=== PATIENT | female | born 1950 | race African-American/Black ===

== ENCOUNTER 2018-01-12 10:45 | Inpatient (IN) | payer MEDICARE, OTHER ==
[~2018-01-12] VITALS: Ht 160 cm; Wt 162.0 kg
[2018-01-12] VITALS (7 sets, daily range): BP systolic 113–164; BP diastolic 62–103
--- NOTE | ~2018-01-12 | PR ---
[place], [place] PROGRESS NOTE NAME: NETO CARDENAS UNIT #: [id number] ROOM: 408 DOCTOR: YANNICK MABRY MD BIRTHDATE: [birth year] DOS: 01/15/2018 SUBJECTIVE: The patient noted comfortable at this time without any acute distress, resting comfortably on the bed. She has not reported any symptoms of chest pain. Using the BiPAP for the patient has ordered with oxygen supplementation as well. OBJECTIVE: VITAL SIGNS: For the patient shows normal temperature, respiratory rate 18, heart rate of 71, blood pressure 159/84. The pulse oxygen saturation of the patient recorded as 99% saturation on 2 liters nasal cannula. HEENT: Chronic obesity. Head was atraumatic. Eyes nonicterus. NECK: Supple. CARDIOVASCULAR: S1, S2 audible. LUNGS: Without any wheeze or crackles. ABDOMEN: Soft and morbidly obese. EXTREMITIES: Chronic changes. LABORATORY DATA: BMP of the patient this morning, BUN 39, creatinine 1.49. The patient with gram-positive cocci, which has been noted initially on admission. Final cultures are Staph epidermidis for the patient and the followup cultures surveillance, which was done for the patient of the 2nd showed no bacterial growth. Possibly contamination could be considered very strongly for the patient because of followup culture does not show any organisms. IMPRESSION: 1. The patient has been currently noted with progressive and gradual resolution of acute exacerbation of chronic obstructive pulmonary disease with acute on chronic hypercapnic hypoxic respiratory failure. 2. Suspicion of obstructive sleep apnea disorder. 3. Possible contamination for the patient Staphylococcus epidermidis. PLAN OF MANAGEMENT: Recommended to discontinue antibiotic. Close monitoring for any signs of infection or sepsis ____ the antibiotic could be ____. Otherwise, no need for antibiotics. If necessary, obtain the consultation from the Infectious Disease Specialist. [place], [place] PROGRESS NOTE NAME: NETO CARDEANS UNIT #: [id number] ROOM: 408 DOCTOR: YANNICK MABRY MD BIRTHDATE: [birth year] YANNICK GARRETT MD CM:PNTRANS [id number] [id number] YANNICK TORO MD 01/16/18 0011 interface
--- NOTE | ~2018-01-12 | PR ---
[place], [place] PROGRESS NOTE NAME: NETO CARDENAS UNIT #: [id number] ROOM: 408 DOCTOR: TAMI TORO MD,YANNICK BIRTHDATE: [birth year] DOS: 01/16/2018 SUBJECTIVE: She has been noted comfortable at this time, resting on the bed. She has not reported any symptoms of chest pain or any hemoptysis. She denies symptoms of acute shortness of breath at rest. OBJECTIVE: VITAL SIGNS: Normal temperature, respiratory rate 18, heart rate 80-67, blood pressure 151/88. The pulse ox saturation on 2 liters nasal cannula 100% saturation with BiPAP for this patient, 30% oxygen 98% saturation. HEENT: Chronic obesity. Head was atraumatic. Eyes nonicterus. NECK: Supple. CARDIOVASCULAR: S1, S2 audible. LUNGS: The patient noted without any wheeze or crackles. ABDOMEN: Soft, severe morbid obesity. Bowel sounds present. EXTREMITIES: Without any acute edema. LABORATORY DATA: BMP: BUN 38, creatinine 1.38. CO2 33. CBC: WBC count was 13.4. IMPRESSION: 1. The patient with progressive resolution improvement with acute exacerbation of chronic obstructive pulmonary disease noted. 2. Chronic severe morbid obesity. 3. Resolving acute on chronic hypercapnic and hypoxic respiratory failure. 4. Suspicion of obstructive sleep apnea disorder. PLAN OF MANAGEMENT: No changes from the pulmonary standpoint. Discharge planning could be started for the patient's home discharge with a tapering dose of prednisone. Continue bronchodilator in meantime, other supportive plan of therapy and also use of the antibiotic for the patient as ordered. YANNICK GARRETT MD CM:PNTRANS [id number] 1343 YANNICK TORO MD 01/16/18 1341 interface
--- NOTE | ~2018-01-12 | PR ---
[place], [place] PROGRESS NOTE NAME: NETO CARDENAS UNIT #: [id number] ROOM: 408 DOCTOR: TAMI TORO MD,YANNICK BIRTHDATE: [birth year] DOS: 01/18/2018 SUBJECTIVE: The patient was seen and examined on 01/18/2018, was noted comfortable at this time without any acute distress, resting on the bed. She has been continued receiving diuretics for the edema and congestive heart failure management. Respiratory downey doing well, using the BiPAP. There were no symptoms of acute shortness of breath, coughing, or sputum expectoration, wheezing. OBJECTIVE: VITAL SIGNS: Normal temperature, respiratory rate 18, heart rate 69 and blood pressure 140/52. The pulse oxygen saturation on 2 liters nasal cannula 100 % saturation. HEENT: Head was atraumatic. Eyes nonicterus. NECK: Supple. CARDIOVASCULAR: S1, S2 audible. LUNGS: Clear. The patient anterolateral auscultation. ABDOMEN: Noted severe morbid obesity, nontender, bowel sounds present. EXTREMITIES: The patient with chronic obesity with superimposed edema. LABORATORY DATA: CBC: WBC count 16.4. Hemoglobin normal. Hematocrit normal. CMP of the patient, BUN 44, creatinine 1.49 and CO2 36. IMPRESSION: The patient has been noted with current resolving acute exacerbation of chronic obstructive pulmonary disease, acute hypercapnic and hypoxic respiratory failure. Severe morbid obesity, suspected obstructive sleep apnea disorder. PLAN OF MANAGEMENT: Discontinue Solu-Medrol at the present time. Continue diuretics and other medical management as previously in progress. Usual care. Additional treatment changes to be made based on progression of the illness. YANNICK GARRETT MD CM:PNTRANS [phone] YANNICK TORO MD 01/18/18 1125 interface
--- NOTE | ~2018-01-12 | EKG ---
[place], [place] ELECTROCARDIOGRAM REPORT NAME: NETO CARDENAS UNIT #: [id number] ROOM: [facility] DOCTOR: TAMI TORO MD,YANNICK BIRTHDATE: [birth year] DOS: 01/12/2018 Electrocardiogram was done on 01/12/2018 at 11:36 a.m. Normal sinus rhythm noted, heart rate of 87 beats per minute. EKG was noted normal. YANNICK GARRETT MD CM:EKGRPT:ELECTROCARDIOGRAM REPORT [id number] YANNICK TORO MD
--- NOTE | ~2018-01-12 | PR ---
[place], [place] PROGRESS NOTE NAME: NETO CARDENAS UNIT #: [id number] ROOM: 408 DOCTOR: TAMI TORO MD,YANNICK BIRTHDATE: [birth year] DOS: 01/14/2018 PULMONARY PROGRESS NOTE SUBJECTIVE: She was noted quite comfortable at this time, resting on the bed without any acute distress. She has not been reported with any symptoms of chest pain or any hemoptysis. Receiving Solu-Medrol 40 mg q. 8 hours. Uses the BiPAP as advised. This morning, using oxygen supplementation via nasal cannula. OBJECTIVE: VITAL SIGNS: Normal temperature, respiratory rate 16, heart rate 83, blood pressure 149/80. Pulse oxygen saturation recorded as 99% saturation on 2 liters nasal cannula. HEENT: Chronic obesity. Head was atraumatic. CARDIOVASCULAR: S1, S2 is audible. LUNGS: The patient was noted without any wheezing or crackles. ABDOMEN: Soft with severe morbid obesity. Bowel sounds present. EXTREMITIES: Without any acute edema. IMPRESSION: 1. Resolving acute exacerbation of chronic obstructive pulmonary disease with improving acute hypercapnic hypoxic respiratory failure progressively as well. 2. Severe morbid obesity with strong suspicion of obstructive sleep apnea disorder. PLAN OF THERAPY: The patient's dose of steroid will be decreased to 40 mg daily from 40 mg 8 hours. Monitor for respiratory status. May be transferred from the Intensive Care Unit to medical floor. Possible consideration for home discharge in the morning. The assessment and management was discussed with the patient and family members today at the bedside as well. YANNICK GARRETT MD CM:PNTRANS [phone] 18 YANNICK TORO MD 01/14/182017 interface
--- NOTE | ~2018-01-12 | PR ---
[place], [place] PROGRESS NOTE NAME: NETO CARDENAS UNIT #: [id number] ROOM: 408 DOCTOR: TAMI TORO MD,YANNICK BIRTHDATE: [birth year] DOS: 01/23/2018 SUBJECTIVE: She was noted comfortable at this time, resting on the ____ noted without any acute distress. She has been using oxygen supplementation nasal cannula. Denies symptoms of chest pain, abdominal pain, used the BiPAP last night as well. OBJECTIVE: VITAL SIGNS: For the patient, which have been recorded show normal temperature, respiratory rate 18, heart rate 75, blood pressure 90/56. Pulse oxygen saturation on 2.5 liters nasal cannula 97% saturation. HEENT: Chronic obesity. Head was atraumatic. Eyes nonicterus. NECK: Supple. CARDIOVASCULAR: S1, S2 audible. LUNGS: The patient was noted without any wheezing or crackles at present time. ABDOMEN: Soft, nontender. It was noted, morbidly obese. EXTREMITIES: The patient's examination remains unchanged from previously. LABORATORY DATA: CBC: WBC count 16.6. CMP: BUN 50, creatinine 1.83. IMPRESSION: 1. The patient with acute hypercapnic and hypoxic respiratory failure with exacerbation of chronic obstructive pulmonary disease, which is improving. 2. History of morbid obesity as well. 3. Elevation of BUN and creatinine. PLAN OF TREATMENT: No changes from the pulmonary standpoint for the current medical management. Continue other therapy, plan of management as in progress. Usual care, other supportive therapy, plan of care and treatments. YANNICK GARRETT MD CM:PNTRANS [id number] YANNICK TORO MD 01/23/18 1420 interface
--- NOTE | ~2018-01-12 | PR ---
[place], [place] PROGRESS NOTE NAME: NETO CARDENAS UNIT #: [id number] ROOM: 408 DOCTOR: TAMI TORO MD,YANNICK BIRTHDATE: [birth year] DOS: 01/17/2018 SUBJECTIVE: She has been noted comfortable, resting in the bed, used the BiPAP last night. Denies any acute shortness of breath, coughing, wheezing or any sputum expectoration. The patient was using oxygen supplementation this morning of assessment. OBJECTIVE: VITAL SIGNS: Normal temperature, respiratory rate 20, heart rate 70, blood pressure 155/82. Pulse oxygen saturation of the patient recorded as 99% saturation on 2 liters nasal cannula. HEENT: Examination shows head was atraumatic. Eyes nonicterus. NECK: Supple. CARDIOVASCULAR: S1, S2 is audible. LUNGS: Noted without any wheezing or crackles at the present time. ABDOMEN: Noted with severe morbid obesity. EXTREMITIES: Showed chronic changes. IMPRESSION: Stable respiratory status, resolving acute on chronic hypercapnic hypoxic respiratory failure, exacerbation of chronic obstructive pulmonary disease, history of morbid obesity, suspected obstructive sleep apnea disorder. PLAN OF MANAGEMENT: No changes in the plan of management from pulmonary standpoint. Discharge planning was started at this time. Continue other supportive plan of management and care. YANNICK GARRETT MD CM:PNTRANS [phone] YANNICK TORO MD 01/17/18 1333 interface
--- NOTE | ~2018-01-12 | PR ---
[place], [place] PROGRESS NOTE NAME: NETO CARDENAS UNIT #: [id number] ROOM: 408 DOCTOR: TAMI TORO MD,YANNICK BIRTHDATE: [birth year] DOS: 01/26/2018 PULMONARY PROGRESS NOTE SUBJECTIVE: The patient has been noted comfortable, resting on the bed, using the BiPAP this morning. She was planned for discharge home today, as the patient would like to go to nursing facility but they cannot meet her needs for the medical care. OBJECTIVE: VITAL SIGNS: Normal temperature, respiratory rate 20, heart rate 73, blood pressure 89/56-91/43. Pulse oxygen saturation recorded on room air as 99% saturation. HEENT: Head was atraumatic. Eyes nonicterus. NECK: Supple and obese. CARDIOVASCULAR: S1, S2 audible. LUNGS: Clear to anterolateral auscultation. ABDOMEN: Soft, nontender, and obese. EXTREMITIES: Without any acute new change. IMPRESSION: 1. Stable respiratory status, resolved [id number] hypercapnic and hypoxic respiratory failure. 2. Nocturnal hypoxia with strong suspicion of obstructive sleep apnea disorder. 3. Chronic morbid obesity, decreased mobility. PLAN OF MANAGEMENT: No change in the plan of management. From a pulmonary standpoint, the patient could be discharged home, to be continued on oxygen supplementation. Arrangements could be made for diagnostic sleep study for the patient at a sleep lab whenever desired by the patient. In the meantime, continue current therapy plan of management and care. YANNICK GARRETT MD CM:PNTRANS 1305 [id number] YANNICK TORO MD 01/26/18 1446 interface
--- NOTE | ~2018-01-12 | PR ---
[place], [place] PROGRESS NOTE NAME: NETO CARDENAS UNIT #: [id number] ROOM: 408 DOCTOR: AYNNICK MABRY MD BIRTHDATE: [birth year] DOS: 01/19/2018 SUBJECTIVE: The patient has been using the BiPAP at this time for the medical management of chronic hypercapnic respiratory failure. She has not been noted symptoms of chest pain, hemoptysis. Diuretic was continued. Denies any sputum expectoration or cough. OBJECTIVE: VITAL SIGNS: Normal temperature, respiratory rate 16, heart rate 68, blood pressure 144/69. The pulse oxygen saturation through nasal cannula 94% saturation. HEENT: Chronic obesity. Head was atraumatic. Eyes: No icterus. NECK: Supple. CARDIOVASCULAR: S1, S2 audible. LUNGS: The patient was noted without any wheezing or crackles. ABDOMEN: Soft, nontender with chronic changes with some edema and other changes. LABORATORY DATA: CBC today: WBC count 19.4. The BMP for the patient noted as BUN 52, creatinine 1.69. CO2 of 36. IMPRESSION: 1. The patient with chronic hypercapnic respiratory failure and acute hypoxia as well. 2. Morbid obesity. 3. The patient with possibility of obesity, hypoventilation could be considered as well. PLAN OF MANAGEMENT: The patient will benefit from the use of BiPAP. The patient home setting ____ chronic respiratory failure to prevent hospitalization to improve the quality of life. The patient was noted severe morbid obesity. Decreased mobility may not able to do the sleep study in the sleep laboratory because of mobility issues. [place], [place] PROGRESS NOTE NAME: NETO CARDENAS UNIT #: [id number] ROOM: 408 DOCTOR: YANNICK MABRY MD BIRTHDATE: [birth year] YANNICK GARRETT MD CM:PNTRANS 1221 1243 YANNICK TORO MD 01/19/18 1241 interface
--- NOTE | ~2018-01-12 | PR ---
[place], [place] PROGRESS NOTE NAME: NETO CARDENAS UNIT #: [id number] ROOM: 408 DOCTOR: TAMI TORO MD,YANNICK BIRTHDATE: [birth year] DOS: 01/22/2018 SUBJECTIVE: She has been noted comfortable at this time, resting in the bed. Denies acute shortness of breath. Used the BiPAP last night. There has not been noted symptoms of chest pain or hemoptysis. The patient has not been reported any symptoms of wheezing at the present time. OBJECTIVE: VITAL SIGNS: For the patient, which have been recorded shows the temperature noted normal, respiratory rate 18, heart rate 84, and blood pressure 120/57. The pulse ox saturation on room air 98% saturation with BiPAP was 95% saturation. HEENT: Examination shows head was atraumatic. Eyes nonicterus. NECK: Supple and obese. CARDIOVASCULAR: S1, S2 audible. LUNGS: Without any wheezing or crackles. ABDOMEN: Soft and nontender. Bowel sounds present. EXTREMITIES: Without any acute edema. LABORATORY DATA: BMP of the patient that was done this morning shows glucose 157, BUN 60, creatinine 1.99. CO2 was 35. The troponin for the patient, which were done 3 sets were noted normal. The pulse oxygen saturation of the patient, which has been recorded nocturnal pulse ox saturation on the date of 01/20/2018 until 01/21/2018: ____ sample noted was recorded 8 hours 2 minutes and 50 seconds. It shows significant nocturnal oxygen desaturation. Oxygen saturation remained less than 88% for the patient for 20 minutes and 26 seconds, which is at 4.2% saturation. Lowest pulse oxygen saturation noted 72%. The pulse oxygen saturation for the patient was recorded room air at night. IMPRESSION: 1. Nocturnal significant oxygen desaturation was noted. 2. The patient with hypercapnic and hypoxic respiratory failure as well. 3. Severe morbid obesity. PLAN OF MANAGEMENT: Qualification for the BiPAP based on the current pulse ox saturation would be needed. Continuation in the meantime other therapy, plan of management, usual care. Supportive therapy, other plan of care for patient as well. Continue the use of BiPAP at night at the present time. [place], [place] PROGRESS NOTE NAME: NETO CARDENAS UNIT #: [id number] ROOM: [facility] DOCTOR: YANNICK MABRY MD BIRTHDATE: [birth year] YANNICK GARRETT MD CM:PNTRANS [phone] YANNICK TORO MD 01/22/18 1725 interface
--- NOTE | ~2018-01-12 | PR ---
[place], [place] PROGRESS NOTE NAME: NETO CARDENAS UNIT #: [id number] ROOM: 408 DOCTOR: TAMI TORO MD,YANNICK BIRTHDATE: [birth year] DOS: 01/20/2018 PULMONARY PROGRESS NOTE SUBJECTIVE: She is noted comfortable at this time, resting in the bed. She has overnight pulse oximetry completed, pending results. She has not been noted symptoms of chest pain or hemoptysis. Denies symptoms of nausea or vomiting. OBJECTIVE: VITAL SIGNS: Which were recorded for the patient showed the temperature noted as normal. The respiratory rate of the patient recorded as 18, heart rate of 71, blood pressure 111/61. Pulse oxygen saturation of the patient noted as 97% saturation on room air. HEENT: Shows head was atraumatic, eyes nonicterus. NECK: Supple. CARDIOVASCULAR: S1, S2 audible. LUNGS: The patient was noted without any wheezing or crackles at the present time. ABDOMEN: Soft, nontender, and obese. EXTREMITIES: The patient was noted without any acute edema. Chronic changes of the lower extremities were noted with severe obesity. IMPRESSION: The patient has been noted currently stable at this time, resting on the bed, had acute hypercapnic and hypoxic respiratory failure, which is resolving, and severe morbid obesity as well. PLAN OF THERAPY: No changes in the plan for this patient from the pulmonary standpoint. Continuation of the current other plan of management as in progress. Usual care, other supportive plan of therapy and care. YANNICK GARRETT MD CM:PNTRANS 0934 1012 YANNICK TORO MD 01/20/18 1010 interface
--- NOTE | ~2018-01-12 | PR ---
[place], [place] PROGRESS NOTE NAME: NETO CARDENAS UNIT #: [id number] ROOM: 408 DOCTOR: TAMI TORO MD,YANNICK BIRTHDATE: [birth year] DOS: 01/24/2018 SUBJECTIVE: The patient noted comfortable at this time, resting in the bed without any acute distress. She has been noted without any abdominal pain. OBJECTIVE: VITAL SIGNS: For the patient which were recorded showed normal temperature, respiratory rate 18, heart rate 99, blood pressure 129/56. The pulse ox saturation on 2.5 liters nasal cannula was 100% saturation. HEENT: Examination shows chronic obesity. NECK: Supple. CARDIOVASCULAR: S1, S2 audible. LUNGS: Limited auscultation were noted clear. ABDOMEN: Soft, nontender. EXTREMITIES: Without any acute edema. IMPRESSION: 1. The patient has stable respiratory status at this time with resolving acute on chronic hypercapnic hypoxic respiratory failure. 2. Morbid obesity. 3. Suspected obstructive sleep apnea disorder. PLAN OF TREATMENT: No changes in the plan of care at this time. Continue the current plan of management and other care. Usual treatments and therapies. YANNICK GARRETT MD CM:SENAIT [phone] YANNICK TORO MD 01/24/18 1420 interface
--- NOTE | ~2018-01-12 | PR ---
[place], [place] PROGRESS NOTE NAME: NETO CARDENAS UNIT #: [id number] ROOM: 408 DOCTOR: YANNICK MABRY MD BIRTHDATE: [birth year] DOS: 01/25/2018 SUBJECTIVE: The patient noted comfortable at this time. Using the BiPAP this morning. She has been assessed with overnight pulse oximetry with two and half liter oxygen supplementation with the nasal cannula. The patient denies any symptoms of chest pain, coughing or sputum expectoration or acute shortness of breath. OBJECTIVE: VITAL SIGNS: For the patient was recorded this morning, normal temperature, respiratory rate 18, pulse 72, blood pressure 114/57. Pulse ox saturation on room air was 98% saturation recorded. HEENT: Examination shows head was atraumatic. Eyes nonicterus. NECK: Supple. CARDIOVASCULAR: S1, S2 audible. LUNGS: Without any wheezing or crackles. ABDOMEN: Soft, severely obese. EXTREMITIES: Chronic changes. LABORATORY DATA: CBC today, WBC count 15.5. CMP of the patient, BUN 45, creatinine 2.10. The pulse oxygen saturation for the patient, which are recorded overnight, the oxygen saturation less than 89% recorded for 2 minutes and 8 seconds, less than the desire level. The patient did qualify for the BiPAP. IMPRESSION: 1. Obstructive sleep apnea disorder. The patient was assessed at this time as a primary cause for this patient of hypercapnia with obesity, hypoventilation cannot be completely excluded. 2. The patient with severe advanced morbid obesity. Decreased mobility. 3. Increase of BUN and creatinine noted in the last 24 hours. PLAN OF MANAGEMENT: The patient needs to be assessed with a diagnostic study to be done in lab for this patient in the hospital. Arrangements could be made for the sleep study upon discharge for this patient in [facility] sleep respiratory. After the completion of sleep study, the patient most likely will benefit from the use of the BiPAP and CPAP for the medical management. No further changes or recommendation at this time for the management. Discharge planning could be started with continued use of oxygen home setting whenever patient noted medically stable. [place], [place] PROGRESS NOTE NAME: NETO CARDENAS UNIT #: [id number] ROOM: 408 DOCTOR: YANNICK MABRY MD BIRTHDATE: [birth year] YANNICK GARRETT MD CM:PNTRANS [phone] YANNICK TORO MD 01/25/18 1110 interface
--- NOTE | ~2018-01-12 | CON ---
[place], [place] REPORT OF CONSULTATION NAME: NETO CARDENAS UNIT #: [id number] ROOM: [facility] DOCTOR: YANNICK MABRY MD BIRTHDATE: [birth year] DOS: 01/13/2018 PULMONARY CONSULTATION, EVALUATION, AND MANAGEMENT CONSULTATION REQUESTED BY: Hospitalist services. REASON FOR CONSULTATION: For assessment and management of change in mental status with hypercapnia. HISTORY OF PRESENT ILLNESS: A 67-year-old -[place] female patient with history of severe morbid obesity, BMI of 65. Other medical illnesses has been treated by the visiting physicians and other people in the home setting. She has been noted with difficulty in arousing and change in mental status by the family members. The patient developed those symptoms several hours. Currently, the patient has good recall of the symptoms. She was not aware of the changes in mental status. She has been brought to the Emergency Room, where she has been assessed. The arterial blood gas was noted with acute hypercapnia. She was also known with use of the Percocet with chronic pain. Possibility of acute hypercapnia related to the use of the narcotic medication also considered. She has been given 2 doses of Narcan in the Emergency Room. She has noted partial improvement in wakefulness. She was started on BiPAP setting 07/19, which later on changed after consultation from yesterday. The patient has used the BiPAP several hours until this morning using oxygen supplementation 3-4 liter nasal cannula at rest. She has been reported with symptoms of mild coughing, no sputum expectoration. Denies symptoms of wheezing, chest pain, or hemoptysis. REVIEW OF SYSTEMS: CONSTITUTIONAL SYMPTOMS: Fatigue and tiredness were reported, which has been improving. There were no symptoms of fever or chills at home. EYES: Denies any burning, redness, or tenderness. EARS, NOSE, AND THROAT SYMPTOMS: Denies sore throat, hoarseness, otalgia, postnasal drainage, or epistaxis. CARDIOVASCULAR SYSTEM: No angina pain, edema, or pain of the lower extremity. GASTROINTESTINAL SYMPTOMS: Severe morbid obesity. There were no symptoms of nausea, vomiting, dysphagia, abnormal weight loss, hematemesis, or melena reported. GENITOURINARY SYMPTOMS: Denies dysuria, urinary incontinence, suprapubic pain, or hematuria. MUSCULOSKELETAL SYMPTOMS: The patient with chronic pain in the joints without any acute redness or tenderness reported. CENTRAL NERVOUS SYSTEM: Decreased mobility secondary to morbid obesity, able to walk at home with use of walker. Denies any focal neurologic deficit, tingling sensation of the extremities, or seizures. Remaining systems were reviewed and they were noted all negative. PAST MEDICAL HISTORY: Known with: 1. History of chronic kidney disease stage 3 reported. 2. Intervertebral disk disease and osteoarthritis of major joints. 3. Gastroesophageal reflux. 4. Hepatic steatosis. [place], [place] REPORT OF CONSULTATION NAME: NETO CARDENAS UNIT #: [id number] ROOM: [facility] DOCTOR: TAMI TORO MD,YANNICK BIRTHDATE: [birth year] 5. Hyperlipidemia. 6. Essential hypertension. 7. Super morbid obesity. The patient's BMI of 65. 8. History of nephrolithiasis. 9. Prediabetes. 10. Restless leg syndrome. PAST SURGICAL HISTORY: Reported as hysterectomy in the past. SOCIAL HISTORY: The patient is single. She lives at home. She does have one son. She denies any tobacco, alcohol, or any illicit drugs. FAMILY HISTORY: Both parents have been , the history was unknown clearly to the patient. HOME MEDICATIONS: Listed by the nursing staff use of the aspirin, Lipitor, baclofen, Flexeril, Cymbalta, Lasix, gabapentin, metoprolol succinate, omeprazole, Percocet 10/325 one at bedtime, Requip 2 mg b.i.d., and valsartan 320 mg daily. DRUG ALLERGIES: NOTED WITH ALLERGIES TO KEFLEX. CURRENT MEDICATIONS: Administered were noted as use of Solu-Medrol, Cymbalta, aspirin, IV Lasix 40 mg daily, Protonix, Lipitor, DuoNeb, IV vancomycin, and other p.r.n. medications. PHYSICAL EXAMINATION: GENERAL: This is a 67-year-old -[place] female, currently sitting on the bed without any acute distress. Height of 5 feet 3 inches, weight of 368 pounds, and BMI 65. VITAL SIGNS: The vital signs of the patient, which have recorded normal temperature since admission last 24 hours, respiratory rate of 8-12, the heart rate of 70-94, and blood pressure 148/80-138/103. The intake is 706 mL, output 2800 mL, ____ 2000 mL. The pulse ox saturation on 3 liters nasal cannula 98% saturation on BiPAP, previously 99% saturation. HEENT: On examination, head was atraumatic. Eyes nonicterus. NECK: Supple and obese. CARDIOVASCULAR: S1, S2 is audible. LUNGS: The patient noted without any crackles. Generally diminished breath sounds in the lungs are noted bilaterally. ABDOMEN: Noted severe morbid obesity. Bowel sounds present without tenderness. EXTREMITIES: Shows chronic changes of the lower extremity, thickening of the skin, and possible consideration of chronic mild lymphedema. CENTRAL NERVOUS SYSTEM: Cranial nerves 2-12 intact. No focal neurologic deficit. LABORATORY DATA: Urine drug screen on admission was noted greater than 300 opiates. Lactic acid yesterday noted normal in the Emergency Room 1.0. CBC of 01/12/2018, hemoglobin of 11.3, hematocrit 38.0, WBC count normal, and platelet count was normal. The CMP repeated again, BUN 28 and creatinine 2.20. CBC of [place], [place] REPORT OF CONSULTATION NAME: NETO CARDENAS UNIT #: [id number] ROOM: [facility] DOCTOR: TAMI TORO MD,[facility] BIRTHDATE: [birth year] the patient that was done this morning, WBC count 12,000, hemoglobin 11.1, hematocrit normal, and platelet count of 178,000. CMP of the patient that was done this morning showed BUN 32, creatinine 1.87, and glucose 165. PT and PTT done this morning was noted as normal. The arterial blood gas that was done yesterday in the Emergency Room, pH of 7.20, pCO2 of 68.5, pO2 110 on 3 liters nasal cannula oxygen supplementation. Arterial blood gas of the patient that was done this morning on the BiPAP settings of 18/10 shows pH of 7.37, pCO2 of 46.4, and pO2 of 106 with 40% oxygen intake at that time. Troponin noted yesterday normal. RADIOLOGY DATA: Review of 1 view chest x-ray was done in the Emergency Room does not show any acute pulmonary abnormalities. CT scan of the head was done yesterday as well. It was noted negative CT scan of the brain on 01/12/2018. IMPRESSION: 1. The patient who has been currently noted with finding consistent with acute severe hypercapnic respiratory failure as well as hypoxic respiratory failure. The patient does use oxygen supplementation only at nighttime and not during the day. The pH was noticed as 7.26, pCO2 of 58, and pO2 124 in the Emergency Room seem to be improving. 2. Acute exacerbation of obstructive lung disease such as bronchial asthma would be considered. 3. The patient with super morbid obesity without any previous diagnosis of obstructive sleep apnea disorder. The sleep apnea disorder should be excluded, appropriate further testing with current limited circumstances. 4. The patient with acute changes noted, most likely intravascular volume depletion, improving with volume replenishment. PLAN OF MANAGEMENT: Continuation of the current dose of corticosteroids 40 mg q.8 hours, which was decreased recently from 60 mg q.8 hours. Continuation of the diuretic with close monitoring of BUN and creatinine. Usual care, other supportive therapy, plan of management, and care. DVT prophylaxis. Any other change in treatment will be done based on progression of the illness. The BiPAP to be continued most of the time for the next 24 hours during the day and continue at nighttime. Dose of Solu-Medrol will be gradually decreased. Other supportive management of therapy to be continued as well. Thanks for allowing me to participate in care of this patient. [place], [place] REPORT OF CONSULTATION NAME: NETO CARDENAS UNIT #: [id number] ROOM: [facility] DOCTOR: YANNICK MABRY MD BIRTHDATE: [birth year] YANNICK GARRETT MD CM:CONSTR:REPORT OF CONSULTATION [id number] 01/14/18 0005 interface
[~2018-01-12 10:45] MED LIST: ALDACTONE25 MG PO; AMMONIUM LACTATE; ASPIRIN81 M1 PO; CINNAMON500 MG PO; CO Q-1030 MG PO; CYCLOBENZAPRINE10 MG PO; DIOVAN320 MG PO; FERROUS SULFAT325 M1 PO; IBU-8800 MG PO; KLOR-CON M1010 MEQ PO; LORATADINE10 M1 PO; METOPROLOL SR50 MG PO; NEURONTIN600 MG PO; OMEPRAZOLE40 MG PO; OXYCODONE AND A1 TA3 PO; ROPINIROLE2 MG PO; SIMVASTATIN20 MG PO; TOPAMAX100 MG PO; VICODIN HP 6601 TAB PO; VITAMIN B1225 MCG PO; VITAMIN D1000 IU PO; ZESTRIL,PRINIVI20 MG PO; ZYRTEC10 MG PO; [UNRECOGNIZED DRUG - OTHER]
[2018-01-12 11:18] LABS: BILIRUBIN NEGATIVE (NEGATIVE); BLOOD NEGATIVE (NEGATIVE); CLARITY CLEAR (CLEAR); COLOR YELLOW (YELLOW); GLUCOSE NEGATIVE (NEGATIVE); KETONE NEGATIVE (NEGATIVE); LEUKO ESTERASE TRACE (NEGATIVE); NITRITE NEGATIVE (NEGATIVE); SPECIFIC GRAVITY >= 1.030 (1.005-1.030); UROBILINOGEN 0.2 E.U./dl (0.2-1.0)
[2018-01-12 11:27] LABS: URINE AMPHETAMINES < 1000 (1000ng/ml); URINE BARBITURATES < 200 (200ng/ml); URINE BENZODIAZEPINES < 200 (200ng/ml); URINE CANNABINOIDS (THC) < 50 (50ng/ml); URINE COCAINE < 300 (300ng/ml); URINE METHADONE < 300 (300ng/ml); URINE OPIATES > 300 (300ng/ml)
[2018-01-12 11:29] LABS: BASO # 0.1 10*3/uL (0.0-0.1); BASO % 0.5 % (0.0-1.0); EOS # 0.3 10*3/uL (0.0-0.4); EOS % 2.7 % (1.0-4.0); HEMOGLOBIN 11.3 g/dl (12.0-16.0); LYMPH # 1.6 10*3/uL (1.3-4.4); LYMPH % 15.2 % (27.0-41.0); MEAN CELL VOLUME 99.2 fl (81.0-99.0); MEAN CORPUSCULAR HGB 29.5 pg (27.0-31.0); MEAN CORPUSCULAR HGB CONC 29.7 g/dl (33.0-37.0); MEAN PLATELET VOLUME 9.8 fl (9.6-12.3); MONO # 1.1 10*3/uL (0.1-1.0); MONO % 10.6 % (3.0-9.0); NEUT # 7.6 10*3/uL (2.3-7.9); NEUT % 70.7 % (47.0-73.0); PLATELET COUNT AUTOMATED 175 10*3/uL (130-400); RED BLOOD COUNT 3.83 10*6/uL (4.10-5.10); RED CELL DISTRI WIDTH 15.4 % (0-14.5); WHITE BLOOD COUNT 10.8 10*3/uL (4.8-10.8)
[2018-01-12 11:33] LABS: URINE PHENCYCLIDINE < 25 (25ng/ml)
[2018-01-12 11:37] LABS: ABG BASE EXCESS -2.6 mmol/L (-2.0-2.0); ABG HCO3 26.3 mmol/l (22-26); ABG O2 SATURATION 97.4 % (95-97); ARTERIAL BLOOD GAS PCO2 68.6 mmHg (35-45); ARTERIAL BLOOD GAS PH 7.208 (7.35-7.45)
[2018-01-12 11:46] LABS: ALBUMIN 3.3 gm/dl (3.1-4.5); ALKALINE PHOSPHATASE 107 U/L (45-117); BUN 28 mg/dl (7-24); CHLORIDE 109 mmol/L (98-107); POTASSIUM 5.1 mmol/L (3.5-5.1); SGOT/AST 18 IU/L (3-35); SGPT/ALT 23 U/L (12-78); SODIUM 145 mmol/L (136-145)
[2018-01-12 11:52] LABS: BACTERIA 2+; CALCIUM OXALATE CRYSTALS TRACE
[2018-01-12] MEDS ORDERED: KLOR-CON SPRIN10 MEQ PO (11:54)
[2018-01-12] MEDS ORDERED: BACLOFEN20 M1 PO (11:56)
[2018-01-12] MEDS ORDERED: PERCOCET 10-321 EACH PO (12:00)
[2018-01-12] MEDS ORDERED: CYCLOBENZAPRINE10 MG PO (12:01)
[2018-01-12 12:08] LABS: TROPONIN I < 0.015 ng/ml (<0.045)
[2018-01-12] MEDS ORDERED: ATORVASTATIN CA20 M1 PO (15:17)
[2018-01-12] MEDS ORDERED: VALSARTAN320 MG PO (15:17)
[2018-01-12] MEDS ORDERED: METOPROLOL TART50 M1 PO (15:18)
[2018-01-12] MEDS ORDERED: DULOXETINE HCL30 MG PO (15:19)
[2018-01-12] MEDS ORDERED: ROPINIROLE HYDRO2 M2 PO (15:20)
[2018-01-12] MEDS ORDERED: FUROSEMIDE40 MG PO (15:21)
[2018-01-12] MEDS ORDERED: ASPIR 8181 MG PO (15:25)
[2018-01-12 17:14] LABS: ABG BASE EXCESS -1.9 mmol/L (-2.0-2.0); ABG HCO3 25.9 mmol/l (22-26); ABG O2 SATURATION 98.2 % (95-97); ARTERIAL BLOOD GAS PCO2 58.9 mmHg (35-45); ARTERIAL BLOOD GAS PH 7.26 (7.35-7.45)
[2018-01-12] MEDS ORDERED: VITAMIN D31000 UNI1 PO (17:14)
[2018-01-12] MEDS ORDERED: FISH OIL 1,0001 EAC5 PO (17:15)
[2018-01-12] MEDS ORDERED: FERROUS SULFAT325 MG PO (17:15)
[2018-01-12] MEDS ORDERED: MAG DELAY PO (17:17)
[2018-01-12] MEDS ORDERED: KLOR-CON M1010 ME1 PO (17:19)
[2018-01-13] VITALS: BP 150/85
[2018-01-13 03:43] VITALS: BP 149/82
[2018-01-13 06:27] LABS: BASO % 0.1 % (0.0-1.0); HEMATOCRIT 35.9 % (37.0-47.0); HEMOGLOBIN 11.1 g/dl (12.0-16.0); LYMPH # 1.1 10*3/uL (1.3-4.4); LYMPH % 9.2 % (27.0-41.0); MEAN CORPUSCULAR HGB 29.3 pg (27.0-31.0); MEAN CORPUSCULAR HGB CONC 30.9 g/dl (33.0-37.0); MEAN PLATELET VOLUME 9.9 fl (9.6-12.3); MONO # 0.4 10*3/uL (0.1-1.0); MONO % 3.3 % (3.0-9.0); NEUT # 10.4 10*3/uL (2.3-7.9); NEUT % 86.7 % (47.0-73.0); PLATELET COUNT AUTOMATED 178 10*3/uL (130-400); RED BLOOD COUNT 3.79 10*6/uL (4.10-5.10); RED CELL DISTRI WIDTH 14.6 % (0-14.5)
[2018-01-13 06:28] LABS: MEAN CELL VOLUME 94.7 fl (81.0-99.0)
[2018-01-13 07:00] LABS: CREATININE 1.87 mg/dL (0.55-1.02); FREE T4 0.98 ng/dl (0.76-1.46); PHOSPHOROUS 3.5 mg/dL (2.5-4.9); POTASSIUM 4.5 mmol/L (3.5-5.1); TOTAL PROTEIN 7.5 gm/dL (6.4-8.2)
[2018-01-13 07:05] LABS: THYROID STIM HORMONE (HS) 0.583 uIU/ml (0.358-4.75)
[2018-01-13 07:06] LABS: ACT PARTIAL THROMBO TIME 23.7 SECONDS (20.8-31.5)
[2018-01-13 07:12] LABS: ABG BASE EXCESS 1.6 mmol/L (-2.0-2.0); ABG HCO3 26.7 mmol/l (22-26); ABG O2 SATURATION 98.3 % (95-97); ARTERIAL BLOOD GAS PCO2 46.4 mmHg (35-45); ARTERIAL BLOOD GAS PH 7.377 (7.35-7.45)
[2018-01-13 07:53] LABS: VITAMIN D, 25-HYDROXY 56.7 ng/mL (30-100)
[2018-01-13 08:00] VITALS: BP 148/80
[2018-01-13] MEDS ORDERED: PERCOCET 10-321 EACH PO (09:47)
[2018-01-13] MEDS ORDERED: DUONEB 3 MG/3 ML3 M1 INH (09:49)
[2018-01-13] MEDS ORDERED: BACLOFEN 10 MG PO (09:51)
[2018-01-13 16:00] VITALS: BP 137/72
[2018-01-13 20:00] VITALS: BP 145/77
[2018-01-14] VITALS: BP 132/60
[2018-01-14 04:00] VITALS: BP 150/80
[2018-01-14 06:12] LABS: BASO % 0.1 % (0.0-1.0); CREATININE 1.65 mg/dL (0.55-1.02); HEMOGLOBIN 10.8 g/dl (12.0-16.0); LYMPH # 1.1 10*3/uL (1.3-4.4); LYMPH % 6.7 % (27.0-41.0); MEAN CELL VOLUME 94.3 fl (81.0-99.0); MEAN CORPUSCULAR HGB 29.1 pg (27.0-31.0); MEAN CORPUSCULAR HGB CONC 30.9 g/dl (33.0-37.0); MEAN PLATELET VOLUME 10.2 fl (9.6-12.3); MONO # 0.9 10*3/uL (0.1-1.0); MONO % 5.6 % (3.0-9.0); NEUT # 13.8 10*3/uL (2.3-7.9); NEUT % 86.9 % (47.0-73.0); PLATELET COUNT AUTOMATED 186 10*3/uL (130-400); POTASSIUM 4.4 mmol/L (3.5-5.1); RED BLOOD COUNT 3.71 10*6/uL (4.10-5.10); RED CELL DISTRI WIDTH 14.8 % (0-14.5); WHITE BLOOD COUNT 15.9 10*3/uL (4.8-10.8)
[2018-01-14 08:00] VITALS: BP 150/93
[2018-01-14 12:00] VITALS: BP 149/80
[2018-01-14 16:00] VITALS: BP 160/96
[2018-01-14 20:00] VITALS: BP 160/79
[2018-01-15] VITALS: BP 159/85
[2018-01-15 06:32] LABS: CREATININE 1.49 mg/dL (0.55-1.02); POTASSIUM 4.5 mmol/L (3.5-5.1)
[2018-01-15 08:00] VITALS: BP 159/84
[2018-01-15 12:00] VITALS: BP 151/86
[2018-01-15 16:00] VITALS: BP 158/70
[2018-01-15 20:00] VITALS: BP 170/79
[2018-01-16] VITALS: BP 160/90
[2018-01-16 07:40] LABS: HEMATOCRIT 33.5 % (37.0-47.0); HEMOGLOBIN 10.5 g/dl (12.0-16.0); MEAN CELL VOLUME 93.8 fl (81.0-99.0); MEAN CORPUSCULAR HGB 29.4 pg (27.0-31.0); MEAN CORPUSCULAR HGB CONC 31.3 g/dl (33.0-37.0); MEAN PLATELET VOLUME 10.1 fl (9.6-12.3); PLATELET COUNT AUTOMATED 176 10*3/uL (130-400); RED BLOOD COUNT 3.57 10*6/uL (4.10-5.10); RED CELL DISTRI WIDTH 14.6 % (0-14.5); WHITE BLOOD COUNT 13.4 10*3/uL (4.8-10.8)
[2018-01-16 08:00] VITALS: BP 151/88
[2018-01-16 08:05] LABS: CREATININE 1.38 mg/dL (0.55-1.02); POTASSIUM 4.5 mmol/L (3.5-5.1)
[2018-01-16 08:15] LABS: TOTAL CELLS COUNTED 100 #CELLS
[2018-01-16 08:16] LABS: PLATELET SUFFICIENCY NORMAL (NORMAL)
[2018-01-16 12:00] VITALS: BP 136/74
[2018-01-16 16:00] VITALS: BP 143/75
[2018-01-16 20:00] VITALS: BP 141/69
[2018-01-17] VITALS (7 sets, daily range): BP systolic 125–166; BP diastolic 50–88
[2018-01-17 07:10] LABS: HEMATOCRIT 37.2 % (37.0-47.0); HEMOGLOBIN 11.8 g/dl (12.0-16.0); MEAN CORPUSCULAR HGB 29.5 pg (27.0-31.0); MEAN CORPUSCULAR HGB CONC 31.7 g/dl (33.0-37.0); MEAN PLATELET VOLUME 10.3 fl (9.6-12.3); PLATELET COUNT AUTOMATED 198 10*3/uL (130-400); RED CELL DISTRI WIDTH 14.6 % (0-14.5)
[2018-01-17 07:38] LABS: PLATELET SUFFICIENCY NORMAL (NORMAL); TOTAL CELLS COUNTED 100 #CELLS
[2018-01-17 07:40] LABS: CREATININE 1.43 mg/dL (0.55-1.02); POTASSIUM 4.1 mmol/L (3.5-5.1)
[2018-01-18] VITALS: BP 147/67
[2018-01-18 08:00] VITALS: BP 140/62
[2018-01-18 08:01] LABS: BASO % 0.1 % (0.0-1.0); HEMATOCRIT 38.2 % (37.0-47.0); MEAN CELL VOLUME 94.3 fl (81.0-99.0); MEAN CORPUSCULAR HGB 29.6 pg (27.0-31.0); MEAN CORPUSCULAR HGB CONC 31.4 g/dl (33.0-37.0); MEAN PLATELET VOLUME 9.9 fl (9.6-12.3); MONO # 1.5 10*3/uL (0.1-1.0); MONO % 9.1 % (3.0-9.0); NEUT # 12.6 10*3/uL (2.3-7.9); NEUT % 77.3 % (47.0-73.0); PLATELET COUNT AUTOMATED 199 10*3/uL (130-400); RED BLOOD COUNT 4.05 10*6/uL (4.10-5.10); RED CELL DISTRI WIDTH 14.6 % (0-14.5); WHITE BLOOD COUNT 16.4 10*3/uL (4.8-10.8)
[2018-01-18 08:24] LABS: CREATININE 1.49 mg/dL (0.55-1.02); POTASSIUM 4.5 mmol/L (3.5-5.1); TOTAL PROTEIN 7.2 gm/dL (6.4-8.2)
[2018-01-18 12:00] VITALS: BP 123/62
[2018-01-18] MEDS ORDERED: LOSARTAN POTASS50 M1 PO (12:22)
[2018-01-18] MEDS ORDERED: FUROSEMIDE40 MG PO (12:22)
[2018-01-18] MEDS ORDERED: HEPARIN SO5000 UNIT/ SC (12:22)
[2018-01-18] MEDS ORDERED: LEVAQUIN750 M1 PO (12:22)
[2018-01-18] MEDS ORDERED: PREDNISONE10 MG PO (12:22)
[2018-01-18 16:00] VITALS: BP 127/66
[2018-01-18 20:00] VITALS: BP 129/63
[2018-01-19 00:19] VITALS: BP 147/63
[2018-01-19 06:37] LABS: HEMATOCRIT 37.4 % (37.0-47.0); HEMOGLOBIN 11.7 g/dl (12.0-16.0); MEAN CELL VOLUME 93.7 fl (81.0-99.0); MEAN CORPUSCULAR HGB 29.3 pg (27.0-31.0); MEAN CORPUSCULAR HGB CONC 31.3 g/dl (33.0-37.0); MEAN PLATELET VOLUME 10.2 fl (9.6-12.3); PLATELET COUNT AUTOMATED 215 10*3/uL (130-400); RED BLOOD COUNT 3.99 10*6/uL (4.10-5.10); RED CELL DISTRI WIDTH 14.6 % (0-14.5); WHITE BLOOD COUNT 19.4 10*3/uL (4.8-10.8)
[2018-01-19 06:43] LABS: CREATININE 1.69 mg/dL (0.55-1.02); POTASSIUM 4.5 mmol/L (3.5-5.1)
[2018-01-19 07:02] LABS: TOTAL CELLS COUNTED 100 #CELLS
[2018-01-19 07:06] LABS: PLATELET SUFFICIENCY NORMAL (NORMAL)
[2018-01-19 08:00] VITALS: BP 144/69
[2018-01-19] MEDS ORDERED: [UNRECOGNIZED DRUG - OTHER] PO ×2 (09:02→09:04)
[2018-01-19 12:00] VITALS: BP 142/62
[2018-01-19] MEDS ORDERED: LEVAQUIN750 M1 PO (12:59)
[2018-01-19 16:00] VITALS: BP 123/59
[2018-01-19 20:00] VITALS: BP 105/56
[2018-01-20] VITALS: BP 106/62
[2018-01-20 06:16] LABS: HEMATOCRIT 38.1 % (37.0-47.0); HEMOGLOBIN 11.8 g/dl (12.0-16.0); MEAN CELL VOLUME 94.3 fl (81.0-99.0); MEAN CORPUSCULAR HGB 29.2 pg (27.0-31.0); MEAN PLATELET VOLUME 10.4 fl (9.6-12.3); PLATELET COUNT AUTOMATED 215 10*3/uL (130-400); RED BLOOD COUNT 4.04 10*6/uL (4.10-5.10); RED CELL DISTRI WIDTH 14.9 % (0-14.5); WHITE BLOOD COUNT 19.2 10*3/uL (4.8-10.8)
[2018-01-20 06:36] LABS: CREATININE 2.1 mg/dL (0.55-1.02)
[2018-01-20 06:59] LABS: PLATELET SUFFICIENCY NORMAL (NORMAL); TOTAL CELLS COUNTED 100 #CELLS
[2018-01-20 08:00] VITALS: BP 111/61
[2018-01-20 12:00] VITALS: BP 109/56
[2018-01-20 16:00] VITALS: BP 92/55
[2018-01-20 20:00] VITALS: BP 101/51
[2018-01-21] VITALS: BP 106/60
[2018-01-21 06:14] LABS: CREATININE 1.99 mg/dL (0.55-1.02); POTASSIUM 4.3 mmol/L (3.5-5.1)
[2018-01-21 08:00] VITALS: BP 112/56
[2018-01-21 12:00] VITALS: BP 130/74
[2018-01-21 16:00] VITALS: BP 112/48
[2018-01-21 20:00] VITALS: BP 112/50
[2018-01-22] VITALS: BP 103/56
[2018-01-22 08:00] VITALS: BP 121/57
[2018-01-22 12:00] VITALS: BP 120/62
[2018-01-22 16:00] VITALS: BP 120/55
[2018-01-22 20:00] VITALS: BP 103/52
[2018-01-23 00:15] VITALS: BP 126/66
[2018-01-23 06:02] LABS: ALBUMIN 2.8 gm/dl (3.1-4.5); CREATININE 1.83 mg/dL (0.55-1.02); PHOSPHOROUS 3.2 mg/dL (2.5-4.9); POTASSIUM 4.1 mmol/L (3.5-5.1); TOTAL PROTEIN 6.7 gm/dL (6.4-8.2)
[2018-01-23 06:03] LABS: BASO % 0.2 % (0.0-1.0); EOS # 0.1 10*3/uL (0.0-0.4); EOS % 0.8 % (1.0-4.0); HEMATOCRIT 36.3 % (37.0-47.0); HEMOGLOBIN 11.1 g/dl (12.0-16.0); LYMPH # 2.7 10*3/uL (1.3-4.4); LYMPH % 16.5 % (27.0-41.0); MEAN CELL VOLUME 95.5 fl (81.0-99.0); MEAN CORPUSCULAR HGB 29.2 pg (27.0-31.0); MEAN CORPUSCULAR HGB CONC 30.6 g/dl (33.0-37.0); MEAN PLATELET VOLUME 10.4 fl (9.6-12.3); MONO # 1.2 10*3/uL (0.1-1.0); MONO % 7.4 % (3.0-9.0); NEUT # 12.2 10*3/uL (2.3-7.9); NEUT % 73.4 % (47.0-73.0); PLATELET COUNT AUTOMATED 188 10*3/uL (130-400); RED CELL DISTRI WIDTH 14.9 % (0-14.5); WHITE BLOOD COUNT 16.6 10*3/uL (4.8-10.8)
[2018-01-23 08:00] VITALS: BP 93/56
[2018-01-23 12:00] VITALS: BP 105/75
[2018-01-23 16:00] VITALS: BP 132/67
[2018-01-23 20:00] VITALS: BP 99/52
[2018-01-24] VITALS: BP 118/60
[2018-01-24 06:34] LABS: BASO % 0.2 % (0.0-1.0); EOS # 0.1 10*3/uL (0.0-0.4); EOS % 0.8 % (1.0-4.0); HEMATOCRIT 35.1 % (37.0-47.0); HEMOGLOBIN 10.8 g/dl (12.0-16.0); LYMPH # 2.4 10*3/uL (1.3-4.4); LYMPH % 14.2 % (27.0-41.0); MEAN CELL VOLUME 94.6 fl (81.0-99.0); MEAN CORPUSCULAR HGB 29.1 pg (27.0-31.0); MEAN CORPUSCULAR HGB CONC 30.8 g/dl (33.0-37.0); MEAN PLATELET VOLUME 10.3 fl (9.6-12.3); MONO # 1.4 10*3/uL (0.1-1.0); MONO % 8.5 % (3.0-9.0); NEUT # 12.7 10*3/uL (2.3-7.9); NEUT % 74.6 % (47.0-73.0); PLATELET COUNT AUTOMATED 194 10*3/uL (130-400); RED BLOOD COUNT 3.71 10*6/uL (4.10-5.10); WHITE BLOOD COUNT 16.9 10*3/uL (4.8-10.8)
[2018-01-24 06:50] LABS: ALBUMIN 2.8 gm/dl (3.1-4.5); CREATININE 1.93 mg/dL (0.55-1.02); PHOSPHOROUS 3.2 mg/dL (2.5-4.9); POTASSIUM 4.4 mmol/L (3.5-5.1); TOTAL PROTEIN 6.9 gm/dL (6.4-8.2)
[2018-01-24 08:00] VITALS: BP 129/56
[2018-01-24 12:00] VITALS: BP 121/72
[2018-01-24 17:33] VITALS: BP 124/72
[2018-01-24 20:00] VITALS: BP 99/57
[2018-01-25] VITALS: BP 96/45
[2018-01-25 06:15] LABS: BASO % 0.2 % (0.0-1.0); EOS # 0.2 10*3/uL (0.0-0.4); EOS % 1.2 % (1.0-4.0); HEMATOCRIT 33.3 % (37.0-47.0); HEMOGLOBIN 10.3 g/dl (12.0-16.0); LYMPH # 2.8 10*3/uL (1.3-4.4); MEAN CELL VOLUME 94.9 fl (81.0-99.0); MEAN CORPUSCULAR HGB 29.3 pg (27.0-31.0); MEAN CORPUSCULAR HGB CONC 30.9 g/dl (33.0-37.0); MEAN PLATELET VOLUME 9.8 fl (9.6-12.3); MONO # 1.3 10*3/uL (0.1-1.0); MONO % 8.6 % (3.0-9.0); NEUT # 10.9 10*3/uL (2.3-7.9); NEUT % 70.6 % (47.0-73.0); PLATELET COUNT AUTOMATED 183 10*3/uL (130-400); RED BLOOD COUNT 3.51 10*6/uL (4.10-5.10); RED CELL DISTRI WIDTH 15.1 % (0-14.5); WHITE BLOOD COUNT 15.5 10*3/uL (4.8-10.8)
[2018-01-25 06:40] LABS: ALBUMIN 2.8 gm/dl (3.1-4.5); CREATININE 2.1 mg/dL (0.55-1.02); PHOSPHOROUS 4.2 mg/dL (2.5-4.9); TOTAL PROTEIN 6.7 gm/dL (6.4-8.2)
[2018-01-25 08:00] VITALS: BP 114/57
[2018-01-25 12:00] VITALS: BP 110/69
[2018-01-25 16:00] VITALS: BP 121/93
[2018-01-25 20:00] VITALS: BP 99/56
[2018-01-26] VITALS: BP 91/43
[2018-01-26 08:00] VITALS: BP 89/56
== END 2018-01-26 12:00 | disposition home or self-care (01) | DRG 682 ==
LOC: ED 10:45 → ICCU 13:32 → 4E 13:32 → EDHOLD 13:32 → ICCU 13:50 → 4E 01-14 13:50
PROVIDERS: Internal Medicine; Internal Medicine Critical Care Medicine; Internal Medicine Hospice and Palliative Medicine; Nurse Practitioner Family; Student in an Organized Health Care Education/Training Program
PROC: 5A09357 Assistance with Respiratory Ventilation, Less than 24 Consecutive Hours, Continuous Positive Airway Pressure (ICD-10-PCS; principal; 2018-01-19)
PROC: 5A09357 Assistance with Respiratory Ventilation, Less than 24 Consecutive Hours, Continuous Positive Airway Pressure (ICD-10-PCS; 2018-01-22)
PROC: 5A09357 Assistance with Respiratory Ventilation, Less than 24 Consecutive Hours, Continuous Positive Airway Pressure (ICD-10-PCS; 2018-01-23)
PROC: 5A09357 Assistance with Respiratory Ventilation, Less than 24 Consecutive Hours, Continuous Positive Airway Pressure (ICD-10-PCS; 2018-01-26)
DX: N17.0 Acute kidney failure with tubular necrosis (principal); G93.41 Metabolic encephalopathy; J96.21 Acute and chronic respiratory failure with hypoxia; I50.33 Acute on chronic diastolic (congestive) heart failure; E44.0 Moderate protein-calorie malnutrition; R78.81 Bacteremia; J96.22 Acute and chronic respiratory failure with hypercapnia; J44.1 Chronic obstructive pulmonary disease with (acute) exacerbation; J45.901 Unspecified asthma with (acute) exacerbation; I13.0 Hypertensive heart and chronic kidney disease with heart failure and stage 1 through stage 4 chronic kidney disease, or unspecified chronic kidney disease; Z68.44 Body mass index [BMI] 60.0-69.9, adult; B95.7 Other staphylococcus as the cause of diseases classified elsewhere; R73.03 Prediabetes; N18.3 Chronic kidney disease, stage 3 (moderate); E78.5 Hyperlipidemia, unspecified; K21.9 Gastro-esophageal reflux disease without esophagitis; D64.9 Anemia, unspecified; K76.0 Fatty (change of) liver, not elsewhere classified; M47.816 Spondylosis without myelopathy or radiculopathy, lumbar region; G47.33 Obstructive sleep apnea (adult) (pediatric); K59.00 Constipation, unspecified; G25.81 Restless legs syndrome; E66.01 Morbid (severe) obesity due to excess calories; D72.810 Lymphocytopenia; D72.829 Elevated white blood cell count, unspecified; Z88.8 Allergy status to other drugs, medicaments and biological substances; Z79.899 Other long term (current) drug therapy; Z79.82 Long term (current) use of aspirin; Z99.81 Dependence on supplemental oxygen; Z90.710 Acquired absence of both cervix and uterus; Z82.49 Family history of ischemic heart disease and other diseases of the circulatory system

== ENCOUNTER 2018-06-25 10:50 | Inpatient (IN) | payer MEDICARE, OTHER ==
[~2018-06-25] VITALS: Ht 157.4 cm; Wt 180.2 kg
--- NOTE | ~2018-06-25 | EKG ---
[place], [place] ELECTROCARDIOGRAM REPORT NAME: NETO CARDENAS UNIT #: [id number] ROOM: 523 DOCTOR: KIRAN DRAFT REPORT BIRTHDATE: [birth year] [facility] Test Date: 2018-06-25 Test Time: 11:22:14 Pat Name: NETO CARDENAS Department: Room: 523 Gender: F Art Model: SURINDER : 1950 Requested By: SVEN HOLLY Order Number: [id number] Reading MD: Austen Geronimo MD Measurements Intervals [place] Rate: 59 P: 50 MS: 186 QRS: -3 QRSD: 96 T: 30 QT: 400 QTc: 397 Interpretive Statements Sinus rhythm Low voltage, precordial leads No previous ECG available for comparison Electronically Signed On 06-29-2018 8:16:00 PST by Austen Geronimo MD CM:EKGRPT:ELECTROCARDIOGRAM REPORT [id number] SVEN SZYMANSKI DRAFT REPORT SVEN HOLLY DO
[~2018-06-25 10:50] MED LIST changes: +ASPIR 8181 MG PO; +ATORVASTATIN CA20 M1 PO; +BACLOFEN 10 MG PO; +BACLOFEN20 M1 PO; +DULOXETINE HCL30 MG PO; +DUONEB 3 MG/3 ML3 M1 INH; +FERROUS SULFAT325 MG PO; +FISH OIL 1,0001 EAC5 PO; +FUROSEMIDE40 MG PO; +HEPARIN SO5000 UNIT/ SC; +KLOR-CON M1010 ME1 PO; +KLOR-CON SPRIN10 MEQ PO; +LEVAQUIN750 M1 PO; +LOSARTAN POTASS50 M1 PO; +MAG DELAY PO; +METOPROLOL TART50 M1 PO; +PERCOCET 10-321 EACH PO; +PREDNISONE10 MG PO; +ROPINIROLE HYDRO2 M2 PO; +VALSARTAN320 MG PO; +VITAMIN D31000 UNI1 PO; +[UNRECOGNIZED DRUG - OTHER] PO
[2018-06-25 10:51] VITALS: BP 158/77
[2018-06-25 11:32] LABS: BASO # 0.1 10*3/uL (0.0-0.1); BASO % 0.5 % (0.0-1.0); EOS # 0.4 10*3/uL (0.0-0.4); HEMATOCRIT 32.3 % (37.0-47.0); HEMOGLOBIN 10.4 g/dl (12.0-16.0); LYMPH # 1.6 10*3/uL (1.3-4.4); LYMPH % 16.8 % (27.0-41.0); MEAN CELL VOLUME 95.3 fl (81.0-99.0); MEAN CORPUSCULAR HGB 30.7 pg (27.0-31.0); MEAN CORPUSCULAR HGB CONC 32.2 g/dl (33.0-37.0); MEAN PLATELET VOLUME 9.6 fl (9.6-12.3); MONO % 10.5 % (3.0-9.0); NEUT # 6.3 10*3/uL (2.3-7.9); PLATELET COUNT AUTOMATED 195 10*3/uL (130-400); RED BLOOD COUNT 3.39 10*6/uL (4.10-5.10); RED CELL DISTRI WIDTH 13.7 % (0-14.5); WHITE BLOOD COUNT 9.3 10*3/uL (4.8-10.8)
[2018-06-25 11:40] LABS: ACT PARTIAL THROMBO TIME 24.8 SECONDS (20.8-31.5)
[2018-06-25 11:50] LABS: ALKALINE PHOSPHATASE 85 U/L (45-117); BUN 22 mg/dl (7-24); CHLORIDE 110 mmol/L (98-107); CREATININE 1.59 mg/dL (0.55-1.02); LIPASE 95 U/L (73-393); POTASSIUM 4.1 mmol/L (3.5-5.1); SGOT/AST 18 IU/L (3-35); SGPT/ALT 18 U/L (12-78); SODIUM 143 mmol/L (136-145); TOTAL PROTEIN 6.8 gm/dL (6.4-8.2)
[2018-06-25 11:55] LABS: TROPONIN I < 0.015 ng/ml (<0.045)
[2018-06-25 12:51] LABS: BILIRUBIN NEGATIVE (NEGATIVE); BLOOD NEGATIVE (NEGATIVE); CLARITY SL CLOUDY (CLEAR); COLOR YELLOW (YELLOW); GLUCOSE NEGATIVE (NEGATIVE); KETONE NEGATIVE (NEGATIVE); LEUKO ESTERASE TRACE (NEGATIVE); NITRITE POSITIVE (NEGATIVE); SPECIFIC GRAVITY 1.015 (1.005-1.030); UROBILINOGEN 0.2 E.U./dl (0.2-1.0)
[2018-06-25 13:02] LABS: BACTERIA 4+; EPITHELIAL CELLS 35-40; WBC 51-100 wbc/hpf (0-5)
[2018-06-25 13:45] VITALS: BP 146/72
[2018-06-25 14:10] VITALS: BP 151/61
[2018-06-25 15:04] VITALS: BP 151/61
[2018-06-25 16:00] VITALS: BP 148/62
[2018-06-25 20:00] VITALS: BP 133/56
[2018-06-26] VITALS: BP 147/72
[2018-06-26 07:10] LABS: BASO % 0.3 % (0.0-1.0); EOS # 0.3 10*3/uL (0.0-0.4); EOS % 3.5 % (1.0-4.0); HEMOGLOBIN 9.7 g/dl (12.0-16.0); LYMPH # 1.5 10*3/uL (1.3-4.4); LYMPH % 15.7 % (27.0-41.0); MEAN CELL VOLUME 95.7 fl (81.0-99.0); MEAN CORPUSCULAR HGB 29.9 pg (27.0-31.0); MEAN CORPUSCULAR HGB CONC 31.3 g/dl (33.0-37.0); MEAN PLATELET VOLUME 9.8 fl (9.6-12.3); MONO # 1.2 10*3/uL (0.1-1.0); MONO % 12.1 % (3.0-9.0); NEUT # 6.5 10*3/uL (2.3-7.9); NEUT % 68.1 % (47.0-73.0); PLATELET COUNT AUTOMATED 192 10*3/uL (130-400); RED BLOOD COUNT 3.24 10*6/uL (4.10-5.10); RED CELL DISTRI WIDTH 13.7 % (0-14.5); WHITE BLOOD COUNT 9.5 10*3/uL (4.8-10.8)
[2018-06-26 07:50] LABS: ALBUMIN 2.9 gm/dl (3.1-4.5); POTASSIUM 3.9 mmol/L (3.5-5.1)
[2018-06-26 07:56] LABS: CREATININE 1.41 mg/dL (0.55-1.02); PHOSPHOROUS 3.5 mg/dL (2.5-4.9); TOTAL PROTEIN 6.7 gm/dL (6.4-8.2)
[2018-06-26 08:00] VITALS: BP 142/77
[2018-06-26 12:00] VITALS: BP 158/88
[2018-06-26 16:00] VITALS: BP 156/82
[2018-06-26 20:00] VITALS: BP 133/75
[2018-06-27] VITALS: BP 156/83
[2018-06-27 06:32] LABS: BASO % 0.5 % (0.0-1.0); EOS # 0.3 10*3/uL (0.0-0.4); EOS % 3.7 % (1.0-4.0); HEMATOCRIT 31.1 % (37.0-47.0); HEMOGLOBIN 9.6 g/dl (12.0-16.0); LYMPH # 1.8 10*3/uL (1.3-4.4); LYMPH % 19.7 % (27.0-41.0); MEAN CELL VOLUME 95.4 fl (81.0-99.0); MEAN CORPUSCULAR HGB 29.4 pg (27.0-31.0); MEAN CORPUSCULAR HGB CONC 30.9 g/dl (33.0-37.0); MONO # 1.2 10*3/uL (0.1-1.0); MONO % 13.2 % (3.0-9.0); NEUT # 5.6 10*3/uL (2.3-7.9); NEUT % 62.6 % (47.0-73.0); PLATELET COUNT AUTOMATED 185 10*3/uL (130-400); RED BLOOD COUNT 3.26 10*6/uL (4.10-5.10); RED CELL DISTRI WIDTH 13.8 % (0-14.5); WHITE BLOOD COUNT 8.9 10*3/uL (4.8-10.8)
[2018-06-27 06:49] LABS: CREATININE 1.6 mg/dL (0.55-1.02); POTASSIUM 3.8 mmol/L (3.5-5.1)
[2018-06-27 08:00] VITALS: BP 122/67
[2018-06-27 12:00] VITALS: BP 123/56
[2018-06-27 16:00] VITALS: BP 127/55
[2018-06-27 20:00] VITALS: BP 143/66
[2018-06-28] VITALS: BP 116/56
[2018-06-28 06:48] LABS: CREATININE 1.68 mg/dL (0.55-1.02); POTASSIUM 3.6 mmol/L (3.5-5.1)
[2018-06-28 08:00] VITALS: BP 126/80
[2018-06-28 12:00] VITALS: BP 138/70
[2018-06-28 16:00] VITALS: BP 135/65
[2018-06-28 20:00] VITALS: BP 130/70
[2018-06-29] VITALS: BP 129/54
[2018-06-29 07:06] LABS: POTASSIUM 3.6 mmol/L (3.5-5.1)
[2018-06-29 07:09] LABS: CREATININE 1.78 mg/dL (0.55-1.02)
[2018-06-29 08:00] VITALS: BP 150/80
[2018-06-29 12:00] VITALS: BP 145/73
[2018-06-29 16:00] VITALS: BP 137/64
[2018-06-29 20:00] VITALS: BP 141/65
[2018-06-30] VITALS: BP 140/71
[2018-06-30 07:10] LABS: BASO % 0.4 % (0.0-1.0); EOS # 0.5 10*3/uL (0.0-0.4); EOS % 5.1 % (1.0-4.0); HEMATOCRIT 32.9 % (37.0-47.0); HEMOGLOBIN 10.2 g/dl (12.0-16.0); LYMPH # 1.7 10*3/uL (1.3-4.4); MEAN CELL VOLUME 96.8 fl (81.0-99.0); MONO # 1.1 10*3/uL (0.1-1.0); MONO % 12.1 % (3.0-9.0); NEUT # 5.8 10*3/uL (2.3-7.9); NEUT % 63.2 % (47.0-73.0); PLATELET COUNT AUTOMATED 216 10*3/uL (130-400); WHITE BLOOD COUNT 9.1 10*3/uL (4.8-10.8)
[2018-06-30 07:35] LABS: POTASSIUM 3.6 mmol/L (3.5-5.1)
[2018-06-30 07:38] LABS: CREATININE 1.84 mg/dL (0.55-1.02)
[2018-06-30 08:00] VITALS: BP 117/86
[2018-06-30 12:00] VITALS: BP 114/60
== END 2018-06-30 15:05 | DRG 914 ==
LOC: ED 10:50 → 5E 13:35 → EDHOLD 13:35 → 5E 13:42
PROVIDERS: Emergency Medicine; Internal Medicine
DX: S89.91XA Unspecified injury of right lower leg, initial encounter (principal); E44.0 Moderate protein-calorie malnutrition; I50.32 Chronic diastolic (congestive) heart failure; I13.0 Hypertensive heart and chronic kidney disease with heart failure and stage 1 through stage 4 chronic kidney disease, or unspecified chronic kidney disease; Z68.45 Body mass index [BMI] 70 or greater, adult; J96.10 Chronic respiratory failure, unspecified whether with hypoxia or hypercapnia; N39.0 Urinary tract infection, site not specified; R26.2 Difficulty in walking, not elsewhere classified; N18.3 Chronic kidney disease, stage 3 (moderate); R53.1 Weakness; R73.9 Hyperglycemia, unspecified; M47.896 Other spondylosis, lumbar region; E78.5 Hyperlipidemia, unspecified; R82.71 Bacteriuria; D64.9 Anemia, unspecified; D72.810 Lymphocytopenia; E87.8 Other disorders of electrolyte and fluid balance, not elsewhere classified; M17.11 Unilateral primary osteoarthritis, right knee; D72.821 Monocytosis (symptomatic); R73.03 Prediabetes; K21.9 Gastro-esophageal reflux disease without esophagitis; K76.0 Fatty (change of) liver, not elsewhere classified; E66.01 Morbid (severe) obesity due to excess calories; W18.39XA Other fall on same level, initial encounter; Y93.89 Activity, other specified; Y92.091 Bathroom in other non-institutional residence as the place of occurrence of the external cause; Y99.8 Other external cause status; Z88.1 Allergy status to other antibiotic agents; Z90.710 Acquired absence of both cervix and uterus; Z82.49 Family history of ischemic heart disease and other diseases of the circulatory system; Z79.899 Other long term (current) drug therapy

== ENCOUNTER 2019-09-26 20:52 | Emergency (ER) | payer MEDICARE, OTHER ==
[~2019-09-26] VITALS: Ht 157.4 cm; Wt 168.3 kg
[2019-09-26 21:18] LABS: BASO % 0.4 % (0.0-1.0); EOS # 0.3 10*3/uL (0.0-0.4); EOS % 2.5 % (1.0-4.0); HEMATOCRIT 35.4 % (37.0-47.0); HEMOGLOBIN 10.7 g/dl (12.0-16.0); LYMPH # 2.9 10*3/uL (1.3-4.4); LYMPH % 27.2 % (27.0-41.0); MEAN CELL VOLUME 92.4 fl (81.0-99.0); MEAN CORPUSCULAR HGB 27.9 pg (27.0-31.0); MEAN CORPUSCULAR HGB CONC 30.2 g/dl (33.0-37.0); MEAN PLATELET VOLUME 9.6 fl (9.6-12.3); MONO # 0.8 10*3/uL (0.1-1.0); MONO % 7.3 % (3.0-9.0); NEUT # 6.5 10*3/uL (2.3-7.9); NEUT % 62.3 % (47.0-73.0); PLATELET COUNT AUTOMATED 211 10*3/uL (130-400); RED BLOOD COUNT 3.83 10*6/uL (4.10-5.10); RED CELL DISTRI WIDTH 14.7 % (0-14.5); WHITE BLOOD COUNT 10.5 10*3/uL (4.8-10.8)
[2019-09-26 21:29] LABS: ACT PARTIAL THROMBO TIME 27.1 SECONDS (20.0-32.1)
[2019-09-26 21:35] LABS: ALBUMIN 2.8 gm/dl (3.1-4.5); ALKALINE PHOSPHATASE 96 U/L (45-117); BUN 23 mg/dl (7-24); CHLORIDE 109 mmol/L (98-107); CREATININE 1.55 mg/dL (0.55-1.02); POTASSIUM 4.1 mmol/L (3.5-5.1); SGOT/AST 10 IU/L (3-35); SGPT/ALT 14 U/L (12-78); SODIUM 143 mmol/L (136-145); TOTAL PROTEIN 7.6 gm/dL (6.4-8.2)
[2019-09-26 21:37] LABS: TROPONIN I < 0.015 ng/ml (<0.045)
[2019-09-27] MEDS ORDERED: IBU800 MG PO (01:15)
[2019-09-27] MEDS ORDERED: CYCLOBENZAPRINE10 MG PO (01:49)
== END 2019-09-27 02:16 | disposition home or self-care (01) ==
LOC: ED 20:52
PROVIDERS: Emergency Medicine
DX: S29.012A Strain of muscle and tendon of back wall of thorax, initial encounter (principal); M94.0 Chondrocostal junction syndrome [Tietze]; R07.89 Other chest pain; M54.2 Cervicalgia; I13.0 Hypertensive heart and chronic kidney disease with heart failure and stage 1 through stage 4 chronic kidney disease, or unspecified chronic kidney disease; N18.3 Chronic kidney disease, stage 3 (moderate); I50.9 Heart failure, unspecified; E66.01 Morbid (severe) obesity due to excess calories; K21.9 Gastro-esophageal reflux disease without esophagitis; Z90.710 Acquired absence of both cervix and uterus; Z91.048 Other nonmedicinal substance allergy status; Z88.1 Allergy status to other antibiotic agents; Z79.899 Other long term (current) drug therapy; X58.XXXA Exposure to other specified factors, initial encounter; Y93.89 Activity, other specified; Y92.89 Other specified places as the place of occurrence of the external cause; Y99.8 Other external cause status

== ENCOUNTER → 2021-12-22 | Outpatient (CLI) | payer OTHER ==
[~2021-12-22] MED LIST changes: +IBU800 MG PO
== END | disposition home or self-care (01) ==
LOC: RAD 13:22
PROVIDERS: ATTEND Orthopaedic Surgery
DX: M19.072 Primary osteoarthritis, left ankle and foot (principal); M19.071 Primary osteoarthritis, right ankle and foot; M20.12 Hallux valgus (acquired), left foot; M20.11 Hallux valgus (acquired), right foot; M77.32 Calcaneal spur, left foot; M77.31 Calcaneal spur, right foot; M25.774 Osteophyte, right foot; M25.775 Osteophyte, left foot